=== PATIENT | female | born 1980 | race Two or more races ===

== ENCOUNTER 2024-09-23 19:02 | Emergency (ER) | payer MEDICAID, SELFPAY ==
[2024-09-23 19:03] VITALS: BMI 25.7
[2024-09-23 19:27] VITALS: BP 174/84; PULSE 87; RESP 20; TEMP 37.2; O2SAT 99
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
[2024-09-23 20:30] LABS: Basophils # (Auto) 0.1 Thou/mm3 (0.0-0.2); Basophils % (Auto) 1 % (0-2.5); Eosinophils # (Auto) 0.1 Thou/mm3 (0.0-0.5); Eosinophils % (Auto) 1 % (0-10); Hematocrit 41.2 % (36.0-46.0); Hemoglobin 14.1 g/dL (12.0-16.0); Immature Granulocytes % (Auto) 0 % (0-0); Immature Granulocytes Auto 0.03 Thou/mm3 (0.00-0.00); Lymphocytes # (Auto) 3.4 Thou/mm3 (1.0-4.8); Lymphocytes % (Auto) 33 % (10-50); Mean Corpuscular HGB Conc 34.2 g/dl (31.0-37.0); Mean Corpuscular Hemoglobin 28.7 pg (25.0-35.0); Mean Corpuscular Volume 84 fL (80-100); Monocytes # (Auto) 0.6 Thou/mm3 (0.0-0.8); Monocytes % (Auto) 5 % (0-12); Neutrophils # (Auto) 6.2 Thou/mm3 (1.8-7.7); Neutrophils % (Auto) 60 % (37-80); Nucleated Red Blood Cell % 0 /100 WBC (0); Platelet Count 378 Thou/mm3 (140-440); RDW Standard Deviation 37.7 fL (36.4-46.3); Red Blood Count 4.92 Miln/mm3 (4.00-5.20); White Blood Count 10.4 Thou/mm3 (3.6-11.0)
[2024-09-23 20:45] LABS: Partial Thromboplastin Time 24.1 Seconds (22.0-36.0); Prothrombin Time 10.7 Seconds (9.0-12.2)
[2024-09-23 20:47] LABS: HCG,Qualitative Serum Negative
[2024-09-23 20:52] LABS: Alanine Aminotransferase 16 U/L (10-49); Albumin, Serum 4.8 gm/dL (3.5-5.0); Albumin/Globulin Ratio 1.5 (1.2-2.2); Alkaline Phosphatase 144 U/L (46-116); Anion Gap 8 (7-16); Aspartate Amino Transferase 26 U/L (0-34); BUN/Creatinine Ratio 19 Ratio (12-20); Bilirubin,Total 0.3 mg/dL (0.3-1.2); Blood Urea Nitrogen 13 mg/dL (9-23); Calcium 10.2 mg/dL (8.3-10.6); Calcium (Corrected) 10.2 mg/dL (8.5-10.1); Carbon Dioxide 25.9 mMol/L (20.0-31.0); Chloride 106 mMol/L (98-107); Creatinine (Component) 0.7 mg/dL (0.6-1.3); Estimated Creatinine Clearance 91.5 mL/min (>60); Globulin 3.2 gm/dL (2.3-3.5); Glucose 100 mg/dL (74-106); Osmolality,Calculated 279 (275-295); Potassium 3.6 mMol/L (3.4-5.1); Sodium 140 mMol/L (136-145); eGFR > 60 See Note
[2024-09-24] MEDS: KETOROLAC INJ 30 MG/ML VIAL IVP (02:08)
[2024-09-24] MEDS: HYDROcodone/APAP 5/325 TABLET 1 TAB PO (02:09)
== END 2024-09-24 02:16 | disposition home or self-care (01) ==
PROVIDERS: Emergency Provider Emergency Medicine; PCP Family Medicine
DX: S19.9XXA Unspecified injury of neck, initial encounter (principal); S29.9XXA Unspecified injury of thorax, initial encounter; S39.91XA Unspecified injury of abdomen, initial encounter; V89.2XXA Person injured in unspecified motor-vehicle accident, traffic, initial encounter
CPT/HCPCS: 36415; 71260; 72125; 74177; 80053; 84703; 85025; 85610; 85730; 96374; 99285; A4649; J1885; Q9967; A9270